=== PATIENT | female | born 1970 | race Caucasian/White ===

== ENCOUNTER 2025-03-12 06:24 | Day surgery (SDC) | payer BC ==
[2025-03-12] MEDS ORDERED: Midazolam 1 MG/ML 2 ML SDV ONE (07:04)
[2025-03-12] MEDS ORDERED: fentaNYL 50 MCG/ML SDV ONE (07:04)
[2025-03-12] MEDS ORDERED: Propofol 200 MG/20 ML SDV ONE ×2 (07:04→07:50)
[2025-03-12] MEDS: Lactated Ringers 1,000 ML IV SCH (07:17)
== END 2025-03-12 09:22 | disposition home or self-care (01) ==
LOC: JP.SDS 06:24
PROVIDERS: ATTEND Surgery
DX: Z12.11 Encounter for screening for malignant neoplasm of colon (principal); I10 Essential (primary) hypertension; Z91.013 Allergy to seafood; Z79.899 Other long term (current) drug therapy; Z86.0100 Personal history of colon polyps, unspecified
CPT/HCPCS: 00812; 45378; J2250; J2704; J3010; J7120